=== PATIENT | male | born 1950 | race Caucasian/White ===

== ENCOUNTER → 2018-07-31 | Outpatient (CLI) | payer MEDICARE ==
--- NOTE | 2018-07-31 14:20 | KCIC ---
Right lower extremity venous Doppler dated 07/31/2018. Comparison made to 01/25/2018. CLINICAL INDICATION: Follow-up DVT. FINDINGS: Grayscale, color-flow and spectral waveform analysis was performed. There is normal compressibility, phasicity and augmentation of flow within the common femoral vein and superficial femoral vein. Partially occlusive thrombosis of the right popliteal vein and posterior peroneal vein. The posterior tibial vein is patent. Compared to the prior exam, there is been interval improvement with resolution of thrombosis of the superficial femoral vein and posterior tibial vein. IMPRESSION: Improving right lower extremity deep vein thrombosis. There is persistent residual nonocclusive thrombus within the popliteal vein and posterior peroneal vein. Electronically signed by: Ba Riddle MD (07/31/2018 2:17 PM) [id number]
== END | disposition home or self-care (01) ==
LOC: KCIC US 12:57
PROVIDERS: ATTEND Family Medicine
DX: I82.431 Acute embolism and thrombosis of right popliteal vein (principal)
CPT/HCPCS: 93971